=== PATIENT | male | born 1955 | race Caucasian/White ===

== ENCOUNTER 2019-11-13 17:38 | Inpatient (IN) | payer BC ==
[~2019-11-13] VITALS: Ht 188 cm; Wt 97.7 kg
--- NOTE | ~2019-11-13 | HEMODYNAMI ---
PATIENT:NA MOYA MEDICAL RECORD: [id number] : 55 LOCATION:[facility] D.2120 ADMISSION DATE: 11/13/19 Generatedon:11/14/201916:26 Patient name: NA MOYA Patient #: [id number] SSN: [id number] : 1955 Date of study: 11/14/2019 Page: Of Hemodynamic Procedure Report Patient Data Patient Demographics Procedure consent was obtained First Name: NA Gender: Male Last Name: GRIFFIN : 1955 Patient #: [id number] Age: 64 year(s) Race: SSN: [id number] Additional ID: [id number] Contact details [address]: [address] [place] [address] State: [place] City: [place] Zip code: [address] Past Medical History Allergies Allergen Reaction Date Comments Reported Other allergy 11/14/2019 VALIUM Admission Admission Data Admission Date: 11/13/2019 Admission Time: 18:13 Arrival Date: 11/13/2019 Arrival Time: 18:13 Admit Source: Emergency Insurance Payor: Private department health insurance Room #: D.2120 [facility] #: [id number] Height (in.): 73.62 BSA: 2.23 (m2) Height (cm.): 187 BMI: 27.74 (kg/m2) Weight (lbs.): 213.85 Weight (kg.): 97 Lab Results Lab Result Date: 11/14/2019 Lab Result Time: 0:00 Biochemistry Name Units Result Min Max BUN mg/dl 22 --(----)-* 7 18 Creatinine mg/dl 1.2 --(---*)-- 0.6 1.3 eGFR ml/min 64.72734 *-(----)-- 90 120 NONAFRICAN CBC Name Units Result Min Max Hemoglobin g/dl 13.1 -*(----)-- 13.5 17.5 Procedure Procedure Types Cath Procedure Diagnostic Procedure [facility] w/Coronaries Sedation Charges Moderate Sedation up to 30 minutes PCI Procedure AMI/SVG/RECORDING STUDIO SET UP WORKER PTCA or Stent SVG-BMS/SUDHIR Initial Hemochron ACT Test Procedure Description Procedure Date Procedure Date: 11/14/2019 Procedure Start Time: 15:50 Procedure End Time: 16:17 Procedure Staff Name Function Levy Garcia MD Performing Physician Brittni Riley RN Nurse Christie Baron RT Scrub Radha Klein RT Monitor Procedure Data Cath Procedure Fluoroscopy Diagnostic fluoroscopy Total fluoroscopy Time: 6 time: 6 min min Diagnostic fluoroscopy Total fluoroscopy dose: dose: 1106 mGy 1106 mGy Contrast Material Contrast Material Type Amount (ml) Isovue 370 131 Entry Location Entry Primary Successful Side Size Upsize Upsize Entry Closure Succes sful Closure Location (Fr) 1 (Fr) 2 (Fr) Remarks Device Remarks Femoral Right 5 Fr 6 Fr Exoseal artery Short Estimated blood loss: 10 ml Diagnostic catheters Device Type Used For End Catheter Placement MULTIPACK JL 4.0 5Fr Procedure catheter MULTIPACK 3DRC 5Fr Procedure catheter MULTIPACK Pigtail 5 Fr Procedure catheter Procedure Complications No complications Procedure Medications Medication Administration Route Dosage Oxygen etCO2 Nasal cannula 2 l/min Lidocaine 2% added to field 20 Heparin Flush Bag added to field 2 bags (1000units/500ml NS) 0.9% NaCl I.V. 100 ml/hr Heparin Drip 800 units/hr (04207xfkig/250 D5W) Fentanyl I.V. 100 mcg Fentanyl I.V. 100 mcg Heparin Bolus I.V. 3000 units Fentanyl I.V. 100 mcg Cardene I.C. 300 mcg Zofran I.V. 4 mg Hemodynamics Rest BSA: 2.23 (m2) HGB: 13.1 (g/dl) O2 Consumption: Estimated: 264.71 (ml/min) O2 Co nsumption indexed: Estimated:118.7 (ml/min/m) Heart Rate: 75 (bpm) Pressure Samples Time Site Value (mmHg) Purpose Heart Use Rate(bpm) 15:57 LV 130/8,26 Snapshot 75 Gradients Valve Time Site Site Mean SEP/DFP Peak To Heart Use 1 2 (mmHg) (sec/min) Peak Rate (mmHg) (bpm) Aortic 15:57 LV AO 86 Snapshots Pre Cath Intra NCS Post Cath Vital Signs Time Heart Resp SPO2 etCO2 NIBP (mmHg) Rhythm Pain Sedation Rate (ipm) (%) (mmHg) Status Level (bpm) 15:18:08 71 15 98 0 143/80(117) NSR 0 (11) 10(A) , No pain 15:22:26 76 13 99 0 138/82(120) NSR 0 (11) 10(A) , No pain 15:26:44 71 17 98 0 140/79(116) NSR 0 (11) 10(A) , No pain 15:31:06 65 17 98 32.1 134/64(115) NSR 0 (11) 10(A) , No pain 15:35:18 78 15 96 34.3 117/77(108) NSR 0 (11) 10(A) , No pain 15:39:28 52 17 99 34.3 130/78(112) NSR 0 (11) 10(A) , No pain 15:43:42 61 20 98 29.8 150/81(114) NSR 0 (11) 10(A) , No pain 15:48:04 58 15 98 40.3 136/68(101) NSR 0 (11) 10(A) , No pain 15:52:18 82 19 98 38 148/86(117) NSR 0 (11) 10(A) , No pain 15:56:32 89 17 98 26.9 150/86(111) NSR 0 (11) 10(A) , No pain 16:00:46 83 17 98 38.8 143/88(114) NSR 0 (11) 10(A) , No pain 16:05:02 73 16 99 35.8 143/82(109) NSR 0 (11) 10(A) , No pain 16:10:11 80 15 97 35.1 117/68(107) NSR 0 (11) 10(A) , No pain 16:14:23 64 19 98 26.9 120/68(96) NSR 0 (11) 10(A) , No pain 16:24:36 67 18 96 35 119/68(112) NSR 0 (11) 10(A) , No pain Medications Time Medication Route Dose Verified Delivered Reason Notes Effectiveness by by 15:31:56 Oxygen etCO2 Nasal 2 l/min Levy Elkins used for cannula St Reuben Riley general foreman 15:32:03 Lidocaine 2% added to 20ml Levy Lockett for local field vial [place] [facility] Alex[facility] anesthetic MD GONSALEZ 15:32:11 Heparin Flush added to 2 bags Levy Lockett used for Bag field Jose Jose procedure (1000units/500ml MD GONSALEZ NS) 15:32:23 0.9% NaCl I.V. 100 Levy Elkins Per physician ml/hr St Reuben Riley RN, MD 15:32:58 Heparin Drip I.V. drip- 800 Levy Elkins Per physician ([id number]/250 discontinued units/hr St Reuben Riley RN D5W) 15:42:41 Fentanyl I.V. 100 mcg Levy Elkins for sedation St Reuben Riley RN, MD 15:49:07 Fentanyl I.V. 100 mcg Levy Elkins for sedation St Reuben Riley RN, MD 15:58:05 Heparin Bolus I.V. 3000 Levy Elkins for verified units St Reuben Riley RN anticoagulation with dr MD álvarez 16:02:11 Fentanyl I.V. 100 mcg Levy Elkins for sedation St Reuben Riley RN, MD 16:08:09 Cardene I.C. 300 mcg Levy Lockett for Jose [place] vasodilation MD GONSALEZ 16:22:05 Zofran I.V. 4 mg Levy Elkins Per physician pt c/o St Reuben pereyra MD Procedure Log Time Note 14:52:07 Diagnostic Cath Status : Urgent 14:54:13 Informed consent obtained and on chart 14:56:39 Admit Source: Emergency department 14:56:44 Arrival Date: 11/13/2019 6:13:00 PM 14:57:08 Insurance Payor : Private health insurance 14:57:14 Patient Height : 73.62 inches 14:57:17 Patient Weight : 213.85 lbs 14:57:56 Lab Result : Hemoglobin 13.1 g/dl 14:57:56 Lab Result : eGFR NONAFRICAN 64.11029 ml/min 14:57:56 Lab Result : BUN 22 mg/dl 14:57:56 Lab Result : Creatinine 1.2 mg/dl 14:58:08 Procedure Status Urgent Heart Cath (IP). 14:58:10 Brittni Riley RN sent for patient. Start room use. 14:58:11 Time tracking: Regular hours (M-F 7:00 - 5:00) 14:58:16 Plan of Care:Hemodynamics will remain stable., Cardiac rhythm will remain stable., Comfort level will be maintained., Respiratory function will remain adequate., Patient/ family verbilizes understanding of procedure., Procedure tolerated without complication., Recovers from procedure without complications.. 15:07:34 Patient received from Med II to CCL 1 Alert and oriented. Tansferred to table in Supine position. 15:07:35 Warm blankets applied, and ethel hugger turned on for patient comfort. 15:07:35 Correct patient and procedure confirmed by team. 15:07:36 ECG and BP/O2 sat monitors applied to patient. 15:16:59 Vital chart was started 15:17:00 Full Disclosure recording started 15:17:09 H&P Date Dictated: 11/14/2019 Within 30 days and on chart.. 15:17:11 Pre-procedure instructions explained to patient. 15:17:12 Pre-op teaching completed and patient verbalized understanding. 15:17:14 Family in patients room. 15:17:16 Patient NPO since Midnight. 15:17:33 Patient allergic to Other allergyVALIUM 15:17:39 Is the patient allergic to Iodine/contrast media? No. 15:17:41 Was the patient premedicated? Yes 15:17:43 Is patient on blood thinner?Yes 15:17:46 ACC The patient was administered the following blood thiners within the last 24 hours: ACCPlavix 15:17:48 Patient diabetic? No. 15:17:50 If diabetic: On Metformin? N/A 15:17:51 ----Pre-sedation anethsthesia assessment.---- 15:17:56 Previous problem with sedation/anesthesia? No ? 15:17:57 Snore? Yes 15:17:58 Sleep apnea? Unknown 15:18:00 Deviated septum? No 15:18:01 Opens mouth fully? Yes 15:18:02 Sticks out tongue? Yes 15:18:05 Airway obstruction? No ? 15:18:06 Dentures? No ? 15:18:09 Pre procedure: right dorsailis pedis pulse 2+ Normal; easily identifiable; not easily obliterated 15:18:13 Patient pain scale 0/10 ?. 15:18:17 Lab results completed and on chart. 15:18:26 IV patent on arrival in right forearm with 0.9% NaCl at [facility]. 15:18:30 Stress Test: no; N/A ? 15:18:34 Right groin area was prepped with chlora-prep and draped in sterile fashion 15:18:35 Alarms reviewed by R. N. 15:18:35 Sharps counted by scrub and verified by R.N. 15:18:43 Rhythm: sinus rhythm 15:18:49 Use device set Femoral Dx 15:18:51 ACIST Syringe (02199) opened to sterile field. 15:18:52 Bag Decanter (2002S) opened to sterile field. 15:18:52 Medline Cath Pack ([id number]) opened to sterile field. 15:18:53 ACIST Hand Control (20093) opened to sterile field. 15:18:54 ACIST Manifold (30845) opened to sterile field. 15:18:55 DIAGNOSTIC Multipack 5Fr catheter set (QE6807) opened to sterile field. 15:18:56 SHEATH 5FR [place] (NEF358) opened to sterile field. 15:18:57 EMERALD Guide Wire (420-274) opened to sterile field. 15:26:25 Risk of Mortality: 0.2 15:26:28 Risk of blood transfusion: 0.7 15:26:31 Risk of FAUSTINO: 1.6 15:26:34 --------ALL STOP TIME OUT------ 15:26:35 Final Timeout: patient, procedure, and site verified with staff and physician. All members of the team are in agreement. 15:26:37 Right groin site verified by team. 15:26:42 Fire Safety Assessment: A--An alcohol-based skin anteseptic being used preoperatively., C--Open oxygen or nitrous oxide is being used., D--An ESU, laser, or fiber-optic light is being used. 15:26:51 Physical assessment completed. ASA score P 2 - A patient with mild systemic disease as per Levy Garcia MD. 15:26:54 2) 60-89 Mildly reduced kidney function, and other findings (as for stage 1) point to kidney disease. 15:26:58 Maximum allowable contrast dose (3.7 X eGFR X 0.75)180 ml. 15:27:15 Sedation plan: IV Moderate Sedation Medication:Versed, Fentanyl 15:31:56 Oxygen 2 l/min etCO2 Nasal cannula was administered by Brittni Riley RN; used for procedure; Verbal order read back and verified. 15:32:03 Lidocaine 2% 20ml vial added to field was administered by Levy Garcia MD; for local anesthetic; Verbal order read back and verified. 15:32:11 Heparin Flush Bag (1000units/500ml NS) 2 bags added to field was administered by Levy Garcia MD; used for procedure; Verbal order read back and verified. 15:32:23 0.9% NaCl 100 ml/hr I.V. was administered by Brittni Riley RN; Per physician; Verbal order read back and verified. 15:32:58 Heparin Drip (65479spvvv/250 D5W) 800 units/hr I.V. drip- discontinued was administered by Brittni Riley RN; Per physician; Verbal order read back and verified. 15:33:03 Zero performed for pressure channel P1 15:42:41 Fentanyl 100 mcg I.V. was administered by Brittni Riley RN; for sedation; Verbal order read back and verified. 15:49:07 Fentanyl 100 mcg I.V. was administered by Brittni Riley RN; for sedation; Verbal order read back and verified. 15:49:45 Procedure started. 15:50:06 Local anesthetic to right femoral artery with Lidocaine 2% by Levy Garcia MD.INITIAL ACCESS ONLY 15:50:56 A 5 Fr sheath was inserted into the Right Femoral artery 15:51:13 A MULTIPACK JL 4.0 5Fr catheter was advanced over the wire and used for Procedure. 15:51:58 LCA angiography performed. 15:52:01 Injector settings: Ml/sec: 3, Volume: 6, 15:52:36 Catheter removed. 15:52:44 A MULTIPACK 3DRC 5Fr catheter was advanced over the wire and used for Procedure. 15:53:06 Injector settings: Ml/sec: 3, Volume: 6, 15:54:25 SVG to Circ angiography performed. 15:54:35 SVG to Diag angiography performed. 15:55:01 BULLOCK to LAD angiography performed. 15:55:55 A MULTIPACK Pigtail 5 Fr catheter was advanced over the wire and used for Procedure. 15:57:33 LV hemodynamics recorded. 15:57:35 LV gram done using CROWE 15:57:40 Catheter removed. 15:57:41 EF : 55 % 15:58:05 Heparin Bolus 3000 units I.V. was administered by Brittni Riley RN; for anticoagulation; verified with dr álvarez Verbal order read back and verified. 15:59:02 Catheter removed. 15:59:05 Proceeding to intervention. 15:59:08 Use device set ODESSA PCI 15:59:11 SHEATH 6FR [place] (KPM844) opened to sterile field. 15:59:13 WHISPER 300cm guide wire ([id number]) opened to sterile field. 15:59:15 INFLATOR Merit BasixCompak (UQ9263) opened to sterile field. 15:59:17 Sheath upsized to a 6 Fr Short. 15:59:28 GUIDE 6FR LCB catheter (LA6LCB) opened to sterile field. 15:59:31 6 Fr LCB guide catheter was inserted over the wire 16:00:36 Pre PCI Site: Vein Graft OM1 has 90% stenosis. 16:01:03 WHISPER 300 wire advanced. 16:01:08 Wire advanced across lesion. 16:02:11 Fentanyl 100 mcg I.V. was administered by Brittni Riley RN; for sedation; Verbal order read back and verified. 16:02:25 Inflate balloon Inflation number: 1 A EMERGE OTW 3.0 x 12 balloon ([id number]) was prepped and advanced across the 1st Ob Carol , then inflated to 10 SOY for 0:00 (min:sec) . 16:03:20 Balloon removed over the wire. 16:05:24 Place stent Inflation Number: 2 A JILL RX 3.0 x 15 stent ([id number]) was prepped and advanced across the 1st Ob Carol . The stent was deployed at 13 SOY for 0:00 (min:sec) . 16:06:37 Stent catheter was removed intact over wire. 16:08:09 Cardene 300 mcg I.C. was administered by Levy Garcia MD; for vasodilation; Verbal order read back and verified. 16:10:25 Inflate balloon Inflation number: 3 A EMERGE OTW 2.0 x 12 balloon ([id number]) was prepped and advanced across the 1st Ob Carol , then inflated to 8 SOY for 0:00 (min:sec) . 16:13:11 Wire removed. 16:13:11 Guide catheter removed. 16:13:24 EXOSEAL 6Fr (EX600) opened to sterile field. 16:13:30 Sheath removed intact; hemostasis achieved with Exoseal to the Right Femoral artery. 16:13:33 Procedure ended.(Physican Out) 16:14:17 Fluoroscopy time 06.00 minutes. 16:14:21 Fluoroscopy dose: 1106 mGy 16:14:21 Flurop Dose total: 1106 16:14:27 Dose Area Product 03362 mGy/cm. 16:14:33 Contrast amount:Isovue 370 131ml. 16:14:36 Maximum allowable dose exceeded? No. 16:14:37 Sharps counted by scrub and verified by R.N. 16:14:41 Post-op/insertion site Right Femoral artery dressed using a 4 x 4 and Tegaderm. 16:14:45 Post right femoral artery:stable, soft, clean and dry 16:14:48 Post Procedure Pulses reassessed and unchanged 16:14:52 Post procedure: right dorsailis pedis pulse 2+ Normal; easily identifiable; not easily obliterated. 16:14:54 Post-procedure physical assessment completed. ASA score P 2 - A patient with mild systemic disease as per Levy Garcia MD. 16:14:58 Post procedure rhythm: unchanged. 16:15:01 Estimated blood loss: 10 ml 16:15:03 Post procedure instruction explained to patient.Patient verbalizes understanding. 16:15:04 Patient needs reinforcement of post procedure teaching. 16:17:12 ACT drawn and resulted at 210 seconds. (normal therapeutic range 180-240 seconds). 16:17:21 Procedure and supply charges have been captured, reviewed, submitted and are correct. 16:17:25 Procedure Complication : No complications 16:17:28 [facility] Findings: MVD- PCI performed (see procedure note) 16:17:30 Operative report dictated upon procedure completion. 16:17:30 See physician's report for complete and final results. 16:17:33 Report given to [facility]. 16:17:36 Patient transfered to [facility] with Bed. 16:17:38 Vital chart was stopped 16:17:40 Procedure ended. 16:17:40 Full Disclosure recording stopped 16:17:58 ACC-PCI Only Patient was given prescriptions, or instructed by Levy Garcia MD to start/continue the following medications upon discharge: Plavix 16:18:00 End room use (Document Last) 16:19:02 End room use (Document Last) 16:22:05 Zofran 4 mg I.V. was administered by Brittni Riley RN; Per physician; pt c/o nausea Verbal order read back and verified. 16:24:30 Vital chart was started 16:26:27 Vital chart was stopped Intervention Summary Intervention Notes Time ActionType Lesion and Equipment Used Action# Pressure Duration Attributes 16:02:25 Inflate 1st Ob Carol EMERGE OTW 3.0 1 10 00:00 balloon x 12 balloon ([id number]) 16:05:24 Place stent 1st Ob Carol JILL RX 3.0 x 2 13 00:00 15 stent ([id number]) 16:10:25 Inflate 1st Ob Carol EMERGE OTW 2.0 3 8 00:00 balloon x 12 balloon ([id number]) Device Usage Item Name Manufacture Quantity Catalog Number Hospital Part Current Minimal Lot# / Charge Number Stock Stock Serial# Code ACIST Syringe Acist 1 35750 485069 970745 807267 20 (68361) Medical Systems Inc Bag Decanter Microtek 1 2001S 651849 00967 823597 5 (2001S) Medical Inc. Medline Cath Medline 1 [id number] 866806 68647 825582 5 Pack ([id number]) ACIST Hand Acist 1 01972 380354 183574 995888 5 Control Medical (91855) Systems Inc ACIST Manifold Acist 1 33974 537657 302665 985988 5 (24964) Medical Systems Inc DIAGNOSTIC Cardinal 1 IM1227 619739 54742 568444 30 Multipack 5Fr Health catheter set (TE7304) SHEATH 5FR Terumo 1 AWY366 280814 633385 663204 5 [place] (FGT044) EMERALD Guide Cardinal 1 502-455 064987 436897 302098 5 Wire (502-455) Health MULTIPACK JL Cardinal 1 257104 5 4.0 5Fr Health catheter MULTIPACK 3DRC Cardinal 1 839988 5 5Fr catheter Health SHEATH 6FR Terumo 1 UQQ643 843920 665135 857359 40 [place] (XKU544) WHISPER 300cm Enrique 1 [id number] 842363 208190 933635 5 guide wire Vascular ([id number]) INFLATOR Merit Merit 1 WB6762 532920 519467 483509 15 BasixJayporeidAlion Energy Medical (QD0514) GUIDE 6FR LCB Medtronic 1 LA6LCB 549307 67685 830595 1 catheter (LA6LCB) MULTIPACK Cardinal 1 457232 5 Pigtail 5 Fr Health catheter EMERGE OTW 3.0 [place] 1 [id number] 238452 558651 231523 5 [id number] x 12 balloon Scientific ([id number]) JILL RX 3.0 x Medtronic 1 [id number] 522011 9503397 101908 5 [id number] 15 stent ([id number]) EMERGE OTW 2.0 [place] 1 [id number] 098554 471567 240739 5 [id number] x 12 balloon Scientific ([id number]) EXOSEAL 6Fr Cardinal 1 EX600 841166 235658 902230 10 (EX600) Health Signature Audit [place] Stage Time Signature Unsigned Intra-Procedure 11/14/2019 Radha Klein 4:19:02 PM RT(R) Intra-Procedure 11/14/2019 Brittni Riley RN 4:26:42 PM Intra-Procedure 11/14/2019 Levy Rashid 4:26:57 PM Reuben GONSALEZ [place] [address] [place] [address]
[2019-11-13 18:02] VITALS: BP 147/88
[2019-11-13 18:11] LABS: BASOPHILS 0.1 % (0-2); EOSINOPHILS 3.1 % (0-7); HEMATOCRIT 42.6 % (42.0-54.0); HEMOGLOBIN 14.2 g/dL (13.5-17.5); IMMATURE GRANULOCYTES 0.3 % (0-5); LYMPHOCYTES 27.8 % (15-50); MCH 29.8 pg (26.0-34.0); MCHC 33.3 g/dL (31.0-37.0); MCV 89.3 fL (80.0-100.0); MEAN PLATELET VOLUME 9.3 fL (7.4-10.4); MONOCYTES 11.2 % (2-11); NEUTROPHILS 57.5 % (40-80); PLATELET COUNT 256 10x3/uL (130-400); RBC 4.77 10x6/uL (4.20-6.10); RDW 12.7 % (11.5-14.5); WBC 7.4 10x3/uL (4.8-10.8)
[2019-11-13 18:13] VITALS: BP 141/81
[2019-11-13 18:16] LABS: APTT 33.2 SECONDS (22.8-39.4); INR 1.06 (0.85-1.17); PROTIME 13.7 SECONDS (11.6-15.0)
[2019-11-13 18:17] LABS: CALC OSMOLALITY 279 mosm/kg (275-300); CARBON DIOXIDE 28.2 mmol/L (21.0-32.0); CHLORIDE - SERUM 103 mmol/L (98-107); CREATININE - SERUM 1.5 mg/dL (0.6-1.3); GLUCOSE 111 mg/dL (74-106); POTASSIUM - SERUM 3.8 mmol/L (3.5-5.1); SODIUM 137 mmol/L (136-145); UREA NITROGEN 27 mg/dL (7-18); eGFR NON AFRICAN AMERICAN 50 mL/min (90-120)
[2019-11-13] MEDS ORDERED: TOPROL XL25 MG PO (18:17)
[2019-11-13] MEDS ORDERED: ASPIRIN81 MG PO (18:17)
[2019-11-13] MEDS ORDERED: OMEPRAZOLE20 M1 PO (18:17)
[2019-11-13 18:18] VITALS: BP 95/61
[2019-11-13] MEDS ORDERED: SYNTHROID175 MCG PO (18:18)
[2019-11-13] MEDS ORDERED: LIPITOR40 MG PO (18:20)
[2019-11-13 18:26] VITALS: BP 102/64; BP 95/61
[2019-11-13 18:34] LABS: ALBUMIN 3.6 g/dL (3.4-5.0); ALKALINE PHOSPHATASE 113 U/L (30-120); ALT (SGPT) 18 U/L (10-68); BILIRUBIN - TOTAL 0.67 mg/dL (0.2-1.3); CKMB 0.6 U/L (0.0-3.6); CREATINE KINASE 69 UL (21-232); MAGNESIUM - SERUM 1.8 mg/dL (1.8-2.4); PROTEIN - SERUM 8.9 g/dL (6.4-8.2); TROPONIN-I < 0.017 ng/mL (0.000-0.060)
--- NOTE | 2019-11-13 19:02 | NUR ---
REPORT TO JANES BARRIOS
--- NOTE | 2019-11-13 19:08 | NUR ---
REPORT TO WILLIAM JEFFERSON
--- NOTE | 2019-11-13 19:10 | NUR ---
BEDSIDE REPORT RECEIVED FROM WILLIAM LOVE PT IN NO DISTRESS AT THIS TIME, AT BEDSIDE.
[2019-11-13 19:12] VITALS: BP 104/68
--- NOTE | 2019-11-13 19:41 | NUR ---
RECIEVED TO ROOM 2119 FROM ER VIA . PT A&O. RESPERATIONS EVEN ON RA. VITALS STABLE. PLACED ON TELEMETRY. 76 SR PER MT. HISTORY AND MED REC OBTAINED. PT CURRENTLY DENIES PAIN OR NEEDS. OFFERED PT SANDWICH TRAY, PT DECLINED AT THIS TIME, LEFT TO GET PT SOME FOOD.
[2019-11-13 20:00] VITALS: BP 128/69
[2019-11-13 21:48] LABS: THYROID STIMULATING HORMONE 0.93 uIU/mL (0.36-3.74)
--- NOTE | 2019-11-13 22:20 | NUR ---
Shahram ESCAMILLA AT BED SIDE TO SEE PT.
[2019-11-13 23:43] VITALS: Ht 188 cm; Wt 97.7 kg
[2019-11-14] VITALS: BP 159/77
[2019-11-14 00:22] LABS: CKMB 39.3 U/L (0.0-3.6)
[2019-11-14 00:26] LABS: CREATINE KINASE 390 UL (21-232)
[2019-11-14 00:27] LABS: TROPONIN-I 4.573 ng/mL (0.000-0.060)
--- NOTE | 2019-11-14 00:39 | NUR ---
NOTIFIED BY LAB THAT PTS TROPONIN IS ELEVATED AT 4.573. NOTIFIED CHAPO ERICKSON APN VERIFIER OPERATOR FOR CARDIOLOGY. ORDERS RECIEVED AND CARRIED OUT.
--- NOTE | 2019-11-14 00:52 | NUR ---
LAB AT BED SIDE TO DRAW LAB FOR PTT.
[2019-11-14 00:56] LABS: BASOPHILS 0.1 % (0-2); EOSINOPHILS 2.1 % (0-7); HEMATOCRIT 41.7 % (42.0-54.0); HEMOGLOBIN 13.9 g/dL (13.5-17.5); IMMATURE GRANULOCYTES 0.1 % (0-5); LYMPHOCYTES 21.1 % (15-50); MCH 29.9 pg (26.0-34.0); MCHC 33.3 g/dL (31.0-37.0); MCV 89.7 fL (80.0-100.0); MEAN PLATELET VOLUME 9.2 fL (7.4-10.4); MONOCYTES 8.5 % (2-11); NEUTROPHILS 68.1 % (40-80); RBC 4.65 10x6/uL (4.20-6.10); RDW 12.8 % (11.5-14.5); WBC 7.3 10x3/uL (4.8-10.8)
[2019-11-14 00:59] LABS: PLATELET COUNT 201 10x3/uL (130-400)
[2019-11-14 01:19] LABS: ANION GAP 10.1 mmol/L (8-16); CALCIUM 8.6 mg/dL (8.5-10.1); CHOL - HDL RATIO 3.7 ratio (2.3-4.9); CREATININE - SERUM 1.3 mg/dL (0.6-1.3); LDL-HDL RATIO 1.8 ratio (1.5-3.5); POTASSIUM - SERUM 4.1 mmol/L (3.5-5.1)
[2019-11-14 04:00] VITALS: BP 125/71
[2019-11-14 05:38] LABS: BASOPHILS 0.1 % (0-2); EOSINOPHILS 2.6 % (0-7); HEMATOCRIT 39.5 % (42.0-54.0); HEMOGLOBIN 13.1 g/dL (13.5-17.5); IMMATURE GRANULOCYTES 0.4 % (0-5); LYMPHOCYTES 23.2 % (15-50); MCH 29.6 pg (26.0-34.0); MCHC 33.2 g/dL (31.0-37.0); MCV 89.2 fL (80.0-100.0); MEAN PLATELET VOLUME 9.5 fL (7.4-10.4); MONOCYTES 9.6 % (2-11); NEUTROPHILS 64.1 % (40-80); PLATELET COUNT 215 10x3/uL (130-400); RBC 4.43 10x6/uL (4.20-6.10); RDW 12.8 % (11.5-14.5); WBC 7.7 10x3/uL (4.8-10.8)
[2019-11-14 07:02] LABS: ALKALINE PHOSPHATASE 91 U/L (30-120); ALT (SGPT) 30 U/L (10-68); BILIRUBIN - TOTAL 0.63 mg/dL (0.2-1.3); CALC OSMOLALITY 283 mosm/kg (275-300); CALCIUM 8.6 mg/dL (8.5-10.1); CARBON DIOXIDE 23.7 mmol/L (21.0-32.0); CHLORIDE - SERUM 108 mmol/L (98-107); CREATININE - SERUM 1.2 mg/dL (0.6-1.3); GLUCOSE 106 mg/dL (74-106); MAGNESIUM - SERUM 2.1 mg/dL (1.8-2.4); POTASSIUM - SERUM 3.9 mmol/L (3.5-5.1); PROTEIN - SERUM 7.4 g/dL (6.4-8.2); SODIUM 141 mmol/L (136-145); UREA NITROGEN 22 mg/dL (7-18); eGFR NON AFRICAN AMERICAN 65 mL/min (90-120)
[2019-11-14 07:03] LABS: CREATINE KINASE 791 UL (21-232); TROPONIN-I 14.836 ng/mL (0.000-0.060)
[2019-11-14 08:25] VITALS: BP 115/75
[2019-11-14 08:50] LABS: CHOL - HDL RATIO 3.5 ratio (2.3-4.9); LDL-HDL RATIO 2.1 ratio (1.5-3.5)
--- NOTE | 2019-11-14 09:30 | NUR ---
LEAVING FOR VQ SCAN BY W/C.
[2019-11-14 13:05] VITALS: BP 120/69
[2019-11-14 13:07] LABS: CREATINE KINASE 937 UL (21-232); TROPONIN-I 28.198 ng/mL (0.000-0.060)
--- NOTE | 2019-11-14 15:00 | NUR ---
PRE-OPS GIVEN. TO HEALTH COMMUNICATIONS SPECIALIST BY BED.
--- NOTE | 2019-11-14 16:43 | NUR ---
BACK FROM SAFEMAKER. VS WNL. RIGHT GROIN STABLE WITHOUT BLEEDING OR HEMATOMA NOTED. WILL MONITOR.
[2019-11-14] MEDS ORDERED: PLAVIX75 MG PO (18:14)
--- NOTE | 2019-11-14 19:30 | NUR ---
PT IN BED, AAO X 3, AT BEDSIDE, PT RESP EVEN AND UNLABORED. NO DISTRESS NOTED. CL IN REACH, SR UP X 2.
--- NOTE | 2019-11-14 20:30 | NUR ---
PT DISCHARGED TO HOME VIA PERSONAL VEHICLE, NO DISTRESS NOTED AT THIS TIME.
--- NOTE | 2019-11-15 12:12 | OP ---
PATIENT NAME: NA MOYA MEDICAL RECORD: [id number] :55 LOCATION:D.M2 D.0 ADMISSION DATE:11/14/19 SURGEON: ROOSEVELT SCHOFIELD MD DATE OF OPERATION: 11/14/2019 PROCEDURE: Left heart catheterization, selective coronary angiography, right femoral artery approach. CATHETERS: A 5-Portuguese sheath, 5/4 left and right Cindy, 5/4 pig. The procedure was well tolerated. The patient returned to romano, sheath removed. ExoSeal device placed. FINDINGS: Left ventriculography in 30-degree CROWE view: Normal wall motion, normal systolic function. CORONARY ANATOMY: LEFT MAIN: Left main is free of disease. LAD: LAD fills for a short period of time, then is seen via competitive flow via the BULLOCK. The diagonal itself shows a proximal stenosis before the takeoff of the BULLOCK. CIRCUMFLEX: Circumflex is totally occluded in its mid portion. RIGHT CORONARY ARTERY: Has luminal irregularities, no flow obstructive stenosis. BYPASS GRAFTS: BULLOCK to LAD is widely patent throughout its course. No evidence of post-anastomotic stenosis. The saphenous vein graft to D1 widely patent. Saphenous vein graft, this is an OM1 and 2 and this shows a probable fissured plaque versus a fibrotic stenosed area at the anastomotic site of the graft itself, obviously infarct related artery. PLAN: Intervention momentarily. DESCRIPTION OF PROCEDURE: A 5-Portuguese sheath was exchanged for a 6-Portuguese sheath. LCB guiding catheter provided excellent guide catheter support followed by 300 cm Whisper wire, Whisper wire was placed across the area. Pre-deployment balloon was a 2.5 [place]. Stent deployed was a 3.0 x 15 mm Clemente drug-eluting stent up to 16 atmospheres 45 seconds. Final angiography shows excellent resolution of greater than 90% stenosis, no significant residual. IC Cardene was used during the case. The patient was on heparin drip. Plavix was previously loaded at 600 mg. TRANSINT:[id number] Voice Confirmation ID: [id number] DOCUMENT ID: [id number] ROOSEVELT SCHOFIELD MD at 1212 CC: [id number] DICTATION DATE: 11/14/19 1658 LABORER: 11/15/19 0105 DIS IN 11/14/19 [facility] [address] [place] [address]
--- NOTE | 2019-11-15 12:12 | CN ---
PATIENT NAME:NA MOYA MEDICAL RECORD: [id number] : 55 LOCATION:[facility] D.2120 ADMIT DATE: 11/14/19 ACCOUNT: [id number] CONSULTING PHYSICIAN: ROOSEVELT SCHOFIELD MD REFERRING PHYSICIAN: SNOW GARCIA MD DATE OF CONSULTATION: 11/14/2019 HISTORY OF PRESENT ILLNESS: A 64-year-old gentleman with known history of coronary artery disease, had a history of coronary artery bypass grafting of four-vessel back in March. He has actually been doing quite well, finished cardiac rehab, admitted with chest pain occurring while exerting. He has actually been digging a [place] drain, this was quite reminiscent of previous angina, found to have elevated cardiac enzymes. We are consulted for NSTEMI. PAST MEDICAL HISTORY: Includes; 1. History of hypothyroidism, on placement. 2. Hypertension. 3. Hyperlipidemia. 4. Coronary artery disease as described above. ALLERGIES: VALIUM. MEDICATIONS: Include metoprolol 12.5 b.i.d., atorvastatin 40 mg p.o. every day, aspirin every day, Synthroid 175 mcg every day. SOCIAL HISTORY: Nonsmoker, nondrinker. Stays quite active. Easily takes care of all his ADLs. Finished cardiac rehab. REVIEW OF SYSTEMS: The patient reports easy bruising but reports no swollen glands. The patient reports no fever, no night sweats, no significant weight gain, no significant weight loss. No significant exercise tolerance. The patient reports no dry eyes, no irritation, no vision change. Patient reports no difficulty hearing and no ear pain. Patient reports no frequent nose bleeds or nose and sinus problems. Patient reports on arm pain on exertion. No shortness of breath while lying down. No history of heart murmur. Patient reports no cough, no wheezing or coughing up blood. Patient reports no abdominal pain, no vomiting. Normal appetite. No diarrhea and not vomiting blood. No nausea and no constipation. Patient reports no incontinence. No difficulty urinating. No hematuria. No increased frequency. Patient reports no muscle aches. No weakness, no arthralgias, no back pain. No swelling of the extremities. Patient reports no abnormal mole, no jaundice, no rashes. Reports no loss of consciousness. No weakness and no numbness. No seizures, dizziness, or headaches. The patient reports no depression, no sleep disturbance, feeling safe in a relationship and no alcohol abuse. Patient reports on fatigue. Reports no runny nose or sinus pressure. No itching, no hives, and no frequent sneezing. PHYSICAL EXAMINATION: GENERAL: Pleasant gentleman in no acute distress, appears stated age. VITAL SIGNS: Blood pressure 124/64, pulse 72 and regular. HEENT: Normocephalic, atraumatic. NECK: No JVD or bruit. HEART: Regular, II/ systolic ejection murmur. LUNGS: Good air excursion. ABDOMEN: Soft, nontender. CONSULT REPORT [id number] NA MOYA EXTREMITIES: Pulses 2+ with no edema. DIAGNOSTIC DATA: EKG shows minor nonspecific ST-T changes anteriorly. IMPRESSION: Non-ST segment elevation myocardial infarction with early graft failure. PLAN: For angiography, intervention based on the above. TRANSINT:[id number] Voice Confirmation ID: [id number] DOCUMENT ID: [id number] ROOSEVELT SCHOFIELD MD at 1212 CC: [id number] DICTATION DATE: 11/14/19 0849 SLEEVE MACHINE TENDER: 11/14/19 0920 DIS IN 11/14/19 [place] [id number] [place] [id number]
== END 2019-11-14 20:30 | disposition home or self-care (01) | DRG 246 ==
LOC: D.ER 17:38 → OBSVTIME 18:13 → D.M2 18:13
PROVIDERS: Family Medicine; Internal Medicine Interventional Cardiology; ADMIT Family Medicine; ATTEND Family Medicine
PROC: B2111ZZ Fluoroscopy of Multiple Coronary Arteries using Low Osmolar Contrast (ICD-10-PCS; 2019-11-14)
PROC: B2151ZZ Fluoroscopy of Left Heart using Low Osmolar Contrast (ICD-10-PCS; 2019-11-14)
PROC: 027034Z Dilation of Coronary Artery, One Artery with Drug-eluting Intraluminal Device, Percutaneous Approach (ICD-10-PCS; principal; 2019-11-14 14:58)
PROC: 4A023N7 Measurement of Cardiac Sampling and Pressure, Left Heart, Percutaneous Approach (ICD-10-PCS; 2019-11-14 14:58)
DX: T82.211 Breakdown (mechanical) of coronary artery bypass graft (principal); I21.A1 Myocardial infarction type 2; I25.110 Atherosclerotic heart disease of native coronary artery with unstable angina pectoris; N17.9 Acute kidney failure, unspecified; I10 Essential (primary) hypertension; E78.5 Hyperlipidemia, unspecified; K21.9 Gastro-esophageal reflux disease without esophagitis; E03.9 Hypothyroidism, unspecified; Y84.9 Medical procedure, unspecified as the cause of abnormal reaction of the patient, or of later complication, without mention of misadventure at the time of the procedure

== ENCOUNTER 2019-11-16 11:18 | Emergency (ER) | payer BC ==
[~2019-11-16] VITALS: Ht 188 cm; Wt 102.3 kg
[~2019-11-16 11:18] MED LIST: ASPIRIN81 MG PO; LIPITOR40 MG PO; OMEPRAZOLE20 M1 PO; PLAVIX75 MG PO; SYNTHROID175 MCG PO; TOPROL XL25 MG PO
[2019-11-16 11:26] VITALS: Ht 188 cm; Wt 102.3 kg
[2019-11-16 11:50] LABS: BASOPHILS 0.2 % (0-2); EOSINOPHILS 2.3 % (0-7); HEMATOCRIT 41.6 % (42.0-54.0); HEMOGLOBIN 13.9 g/dL (13.5-17.5); IMMATURE GRANULOCYTES 0.3 % (0-5); MCH 29.8 pg (26.0-34.0); MCHC 33.4 g/dL (31.0-37.0); MCV 89.1 fL (80.0-100.0); MEAN PLATELET VOLUME 9.2 fL (7.4-10.4); MONOCYTES 9.8 % (2-11); NEUTROPHILS 69.4 % (40-80); PLATELET COUNT 231 10x3/uL (130-400); RBC 4.67 10x6/uL (4.20-6.10); RDW 12.8 % (11.5-14.5); WBC 6.5 10x3/uL (4.8-10.8)
[2019-11-16 11:54] LABS: CALC OSMOLALITY 276 mosm/kg (275-300); CARBON DIOXIDE 26.2 mmol/L (21.0-32.0); CHLORIDE - SERUM 103 mmol/L (98-107); CREATININE - SERUM 1.4 mg/dL (0.6-1.3); GLUCOSE 152 mg/dL (74-106); POTASSIUM - SERUM 3.6 mmol/L (3.5-5.1); SODIUM 136 mmol/L (136-145); UREA NITROGEN 19 mg/dL (7-18); eGFR NON AFRICAN AMERICAN 54 mL/min (90-120)
[2019-11-16 11:55] LABS: APTT 33.2 SECONDS (22.8-39.4); INR 1.07 (0.85-1.17); PROTIME 13.8 SECONDS (11.6-15.0)
[2019-11-16 12:15] LABS: ALBUMIN 3.3 g/dL (3.4-5.0); ALKALINE PHOSPHATASE 92 U/L (30-120); ALT (SGPT) 31 U/L (10-68); BILIRUBIN - TOTAL 0.83 mg/dL (0.2-1.3); CKMB 3.4 U/L (0.0-3.6); CREATINE KINASE 116 UL (21-232); MAGNESIUM - SERUM 1.7 mg/dL (1.8-2.4); PROTEIN - SERUM 8.6 g/dL (6.4-8.2)
[2019-11-16 12:17] LABS: TROPONIN-I 6.659 ng/mL (0.000-0.060)
[2019-11-16 13:13] VITALS: BP 125/70
== END 2019-11-16 13:13 | disposition home or self-care (01) ==
LOC: D.ER 11:18
PROVIDERS: Emergency Medicine
DX: R00.2 Palpitations (principal); M62.838 Other muscle spasm; M25.512 Pain in left shoulder; E03.9 Hypothyroidism, unspecified; I25.2 Old myocardial infarction; K21.9 Gastro-esophageal reflux disease without esophagitis

== ENCOUNTER 2020-10-06 23:04 | Observation (INO) | payer MEDICARE ==
[~2020-10-06] VITALS: Ht 188 cm; Wt 96.9 kg
--- NOTE | ~2020-10-06 | SS ---
PATIENT:NA MOYA :55 MEDICAL RECORD: [id number] DISCHARGE SUMMARY ADMISSION DATE: 10/07/20 DISCHARGE DATE: 10/07/20 HISTORY: This is a 65-year-old white male who lives with his near [place]. His primary care provider actually is still down in [place] where he also has a home, but he spends a lot of time up here as well and has no PCP up here. He has a history of coronary artery disease and had coronary artery bypass graft in March of 2019 and has had one stent placed to the vein graft to the circumflex after developing a ruptured plaque in the graft. He presented the evening of 10/06/2020 because of 2 episodes of vague discomfort in his upper back. In the past, he has had angina that typically had bilateral shoulder pain and this was somewhat similar to that except it was more on one side. Yesterday, he was about to go turkey hunting sitting in his truck when he had this vague discomfort in the right upper back around the shoulder blade, pain waxed and waned for about 30 minutes and went away. Later in the day, he was attending a [employer] baseball game and had the same vague discomfort again in the right shoulder blade lasting about 20 minutes and because this was similar to what he had had with his angina he came to the Emergency Room. His labs looked pretty good. He was assigned to observation. He was seen by cardiology this morning. PAST MEDICAL AND SURGICAL HISTORY: Coronary artery disease as mentioned above. He has hypothyroidism, BPH, and reflux. PAST SURGICAL HISTORY: Again coronary artery bypass graft in March 2019 and a coronary stent as mentioned. ALLERGIES: REPORTEDLY TO VALIUM. HOME MEDICATIONS: Flomax 0.4 mg once a day, Plavix 75 mg once a day, metoprolol XL 25 one-half b.i.d., aspirin 81 mg once a day, Pepcid 20 mg twice a day, levothyroxine 175 mcg once a day, he was on atorvastatin until that was stopped by his bakery deliverer, Dr. Matt Huynh, a couple of months ago when he had muscle aches and pains resolved after stopping that. He states that Dr. Huynh is working on getting an alternative medicine for a statin. FAMILY HISTORY: Parents are . His father had hypertension. Neither parent had coronary artery disease, diabetes or cancer. SOCIAL HISTORY: The patient is . He is retired from [employer]. He worked in [place], [place]. REVIEW OF SYSTEMS: GENERAL: No major weight changes. HEENT: No particular sinus or allergy problems. RESPIRATORY: No history of emphysema or asthma. CARDIAC: See above history. GASTROINTESTINAL: He has had some reflux. GENITOURINARY: Some BPH symptoms. MUSCULOSKELETAL: No significant arthritic aches or pains. He has muscle aches and pains with the atorvastatin. NEUROLOGIC: No migraines or seizures. PSYCHIATRIC: Denies depression or melancholia. SHORT STAY SUMMARY [id number] NA MOYA PHYSICAL EXAMINATION: VITAL SIGNS: Temperature 97.5, heart rate 55, respirations 18, blood pressure 110/74, O2 sat 99%. GENERAL: He is awake and alert. He is in no acute distress. His is at bedside. He is having no chest pain or upper back pain. SKIN: Warm and dry. HEENT: Grossly within normal limits. NECK: Supple. No JVD or bruit. HEART: Regular rate and rhythm without murmur. LUNGS: Clear. ABDOMEN: Soft, flat, nontender. LABORATORY AND DIAGNOSTIC DATA: CBC with a white count of 7300, hemoglobin 14.6, hematocrit 42. Basic metabolic panel; sodium 139, potassium 3.7, chloride 105, CO2 24, BUN 25, creatinine 1.2, glucose 114, calcium 8.4. Liver functions were all normal. INR 1.13. D-dimer 0.3, magnesium 1.9. ProBNP 341. TSH 0.62, lipase 126. Troponin has been done times 2 and both were less than 0.017. Chest x-ray shows no acute process going on. ASSESSMENT: 1. Anginal equivalent. 2. History of coronary artery disease. 3. Hypothyroidism. PLAN: I reviewed Dr. Rueda's note and spoke with the patient and his . He is feeling fine. He has had 2 sets of negative enzymes and EKG showed no ischemic changes. He admits that his discomfort is not quite what he experienced a year ago when he had the acute coronary syndrome, but it was close. Dr. Matt Huynh is his bakery deliverer in [place]. According to Dr. Rueda's note, the patient had a normal stress test there last summer. It is recommended that he can be discharged home today with no further tests or procedures done. He will follow up with Dr. Huynh in [place] and Dr. Rueda feels that it is a reasonable thing. He will continue his usual home medications. He states he needs to establish with a primary care provider here and I will see him in 1 to 2 weeks in my office. TRANSINT:[id number] Voice Confirmation ID: [id number] DOCUMENT ID: [id number] DAMARIS STONER MD CC: [id number] DICTATION DATE: 10/07/20 1017 JACK OF ALL TRADES: 10/08/20 0117 DIS IN 10/07/20 [place] [id number] [place] [id number]
[2020-10-06] MEDS ORDERED: PEPCID AC20 MG PO (23:22)
[2020-10-06] MEDS ORDERED: FLOMAX0.4 MG PO (23:22)
[2020-10-06 23:58] LABS: CALC OSMOLALITY 282 mosm/kg (275-300); CALCIUM 8.4 mg/dL (8.5-10.1); CHLORIDE - SERUM 105 mmol/L (98-107); CREATININE - SERUM 1.2 mg/dL (0.6-1.3); GLUCOSE 114 mg/dL (74-106); POTASSIUM - SERUM 3.7 mmol/L (3.5-5.1); SODIUM 139 mmol/L (136-145); UREA NITROGEN 25 mg/dL (7-18); eGFR NON AFRICAN AMERICAN 64 mL/min (90-120)
[2020-10-07 00:02] LABS: HEMOGLOBIN 14.6 g/dL (13.5-17.5); LYMPHOCYTES 14.4 % (15-50); MCH 30.6 pg (26.0-34.0); MCHC 34.8 g/dL (31.0-37.0); MCV 88.1 fL (80.0-100.0); MEAN PLATELET VOLUME 8.7 fL (7.4-10.4); NEUTROPHILS 79.5 % (40-80); PLATELET COUNT 248 10x3/uL (130-400); RBC 4.77 10x6/uL (4.20-6.10); RDW 12.2 % (11.5-14.5); WBC 7.3 10x3/uL (4.8-10.8)
[2020-10-07 00:04] LABS: APTT 33.9 SECONDS (22.8-39.4); INR 1.13 (0.85-1.17); PROTIME 13.4 SECONDS (11.6-15.0)
[2020-10-07 00:05] LABS: D-DIMER-QUANTITATIVE 0.3 ug/mLFEU (0.20-0.54)
[2020-10-07 00:12] LABS: ALBUMIN 3.5 g/dL (3.4-5.0); ALKALINE PHOSPHATASE 85 U/L (30-120); ALT (SGPT) 25 U/L (10-68); BILIRUBIN - TOTAL 0.46 mg/dL (0.2-1.3); LIPASE 126 U/L (73-393); MAGNESIUM - SERUM 1.9 mg/dL (1.8-2.4); PRO BNP 341 pg/mL (0-125); THYROID STIMULATING HORMONE 0.62 uIU/mL (0.36-3.74); TROPONIN-I < 0.017 ng/mL (0.000-0.060)
[2020-10-07 00:14] LABS: C-REACTIVE PROTEIN < 0.2 mg/dL (0.0-0.9)
--- NOTE | 2020-10-07 00:52 | NUR ---
PT REPORT GIVEN TO BIJAL THOMAS
[2020-10-07 03:41] VITALS: BP 110/74; Ht 188 cm; Wt 96.9 kg
--- NOTE | 2020-10-07 03:55 | NUR ---
RECIEVED REPORT FROM RN IN ER. ARRIVED TO FLOOR IN W/C. TRANSFERED SELF TO BED. SPOUSE AT BEDSIDE. ALERT AND ORIETNED X4. UP AD JASON. DENIES ANY NEEDS AT THIS TIME. ASSESSSMENT COMPLETED.
[2020-10-07 04:00] VITALS: BP 110/74
--- NOTE | 2020-10-07 07:15 | NUR ---
LAYING IN BED WITH AT BEDSIDE, DENIES PAIN OR NEEDS AT THIS TIME, CALL LIGHT IN REACH, WILL MONITOR
[2020-10-07 08:35] VITALS: BP 109/62
--- NOTE | 2020-10-07 08:55 | NUR ---
DR STONER HERE SEEING PATIENT
--- NOTE | 2020-10-07 09:45 | NUR ---
PIV DC'D AT THIS TIME
--- NOTE | 2020-10-07 09:59 | NUR ---
PT DISCHARGED HOME WITH PRESENT, DISCHARGE INSTRUCTIONS GIVEN AND MEDICATIONS EXPLAINED, DENIES CHEST PAIN AT THIS TIME
== END 2020-10-07 18:34 | disposition home or self-care (01) ==
LOC: D.ER 23:04 → D.M2 10-07 02:24 → OBSVTIME 10-07 02:25 → D.M2 10-07 18:34
PROVIDERS: Family Medicine; ADMIT Family Medicine; ATTEND Family Medicine
DX: I25.110 Atherosclerotic heart disease of native coronary artery with unstable angina pectoris (principal); I24.9 Acute ischemic heart disease, unspecified; I10 Essential (primary) hypertension; K21.9 Gastro-esophageal reflux disease without esophagitis; Z72.0 Tobacco use